=== PATIENT | male | born 1995 | race Two or more races ===

== ENCOUNTER 2019-03-15 11:18 | Outpatient (CLI) | payer OTHER | END 2019-03-15 11:26 | disposition home or self-care (01) | LOC: SONOGRAMA 11:18 | DX: E04.1 Nontoxic single thyroid nodule (principal) ==

== ENCOUNTER → 2020-04-05 | Outpatient (CLI) | payer OTHER | END | disposition home or self-care (01) | LOC: RAD 08:21 | PROVIDERS: ATTEND Chiropractor | DX: M46.06 Spinal enthesopathy, lumbar region (principal) ==